=== PATIENT | female | born 1990 | race Caucasian/White ===

== ENCOUNTER 2022-11-15 02:01 | Emergency (ER) | payer OTHER ==
[~2022-11-15] VITALS: Ht 175.3 cm; Wt 159.1 kg
[2022-11-15 02:36] VITALS: TEMP 98.1
[2022-11-15] MEDS ORDERED: NO HOME MEDS (02:52)
[2022-11-15] MEDS ORDERED: diphenhydrAMINE 25mg capsule PO ONE (04:05)
[2022-11-15 04:11] VITALS: BP 151/100; PULSE 74; RESP 16; O2SAT 97
== END 2022-11-15 04:14 | disposition home or self-care (01) ==
LOC: ER 02:02
DX: T78.1XXA Other adverse food reactions, not elsewhere classified, initial encounter (principal); R22.0 Localized swelling, mass and lump, head; X58.XXXA Exposure to other specified factors, initial encounter
CPT/HCPCS: 99282; Q0163; 99283